=== PATIENT | female | born 1935 | race Caucasian/White ===

== ENCOUNTER 2023-12-28 15:50 | Emergency (ER) | payer MEDICARE, SELFPAY ==
[2023-12-28] VITALS (7 sets, daily range): BP systolic 150–173; BP diastolic 73–94
--- NOTE | 2023-12-28 20:36 | ED.GENMED ---
History of Present Illness
General
Chief Complaint: Fall
Source: patient and family
Exam Limitations: none
Time Seen by Provider: 12/28/23 18:15
Nursing documentation reviewed up to this point in time: agreed with
Travel History
Have you had any contact with someone who has COVID-19?: No
Do you have any symptoms of coronavirus? Fever > 100 degrees, chills, cough, shortness of breath, sore throat, loss of taste or smell, muscle aches, or headache?: No
History of Present Illness
History of Present Illness:
88-year-old female past medical history chronic back pain hypertension hyperlipidemia presenting to the emergency department after slipping falling backward hitting her mid back denies additional injuries denies hitting her head denies loss
conscious not on blood thinners. No extremity discomfort no numbness or weakness
Past History
Past History
ED Past Medical History: Arrthythmia (Torsades, high grade AV block), GERD, HTN, Hypercholesterolemia and [place]
ED Past Surgical History: Appendectomy, Cardiac (Pacemaker), Orthopedic, Tonsilectomy and Other (Cataracts)
Social History
Tobacco: Non-smoker
Alcohol: None
Drug: None
Personal:
Living: with family
Family History
Family History: Negative Diabetes, Hypertension, Early CAD, Asthma or Cancer
Review of Systems
Review of Systems
Allergies reviewed?: Yes
All Other Systems: ROS reviewed and negative except as documented in HPI and ROS
Phy Exam
Physical Exam
Physical Exam:
GENERAL: Alert , in no apparent distress
EYE: pupils equal and reactive
NECK: Supple, no significant adenopathy.
ENT: o/p clr, mmm.
CARDIAC: Discomforts throughout the mid and lower thoracic region of the back very minimal tenderness no specific bony tenderness regular rate and rhythm .
LUNGS: Clear breath sounds bilaterally, no acute respiratory distress, no wheezes/rales/rhonchi
ABDOMEN: Soft, without focal tenderness, no r/g, no cvat
NEUROLOGICAL: Alert and oriented, no focal neuro deficits
SKIN: Warm and dry, skin intact.
MUSCULOSKELETAL: No edema, well perfused.
PSYCH: Normal and appropriate interaction.
Course
Orders/Labs/Results
Orders:
Orders
12/28/23 18:58
CT Chest W/o Iv Contrast Urgent
Comment:
Reason For Exam: fall hit back midline, crepit, rib pain mid thorac
Vital Signs
Initial and Last Documented VS:
Initial Vital Signs
Temp Pulse Resp BP Pulse Ox
97.7 F 75 18 168/90 96
12/28/23 16:15 12/28/23 16:15 12/28/23 16:15 12/28/23 16:15 12/28/23 16:15
Last Documented Vital Signs
Temp Pulse Resp BP Pulse Ox
97.7 F 84 16 173/79 95
12/28/23 16:15 12/28/23 18:49 12/28/23 18:49 12/28/23 18:49 12/28/23 18:51
MDM/Problems Addressed
MDM/Problems Addressed:
88-year-old female presenting to the emergency department today after slipping falling backward hitting her mid upper back on the ground. Ongoing discomfort since no numbness weakness no shortness of breath no chest pain denies any her head or neck
no head or neck discomfort or signs of trauma. Normal neurologic evaluation. Clear lungs. CT scan was obtained without emergent findings. Patient appears stable for discharge considering no emergent findings at site of traumatic injury. Return
precautions given. Well-appearing throughout ER stay.
*Critical Care Note
Total Time (30-74mins, 75-104mins- exclusive of procedures): Not Applicable
ED Attending Note
-
Portions of this chart may have been created with voice recognition software.� Occasional wrong word or��sound alike� substitutions may have occurred due to the inherent limitations of voice recognition software.
Discharge Plan
Departure
Patient Disposition: Home (Routine Discharge)
Date of Disposition: 12/28/23
Time of Disposition: 21:25
Patient with high blood pressure during this ER visit?: No
Condition: Good
Covid-19: Not Applicable
Discharge Problem:
Contusion of back
Instructions: Contusion (DC)
Prescriptions:
No Action
simvastatin 20 MG tablet
20 mg PO HS
folic acid 1 MG tablet
1 mg PO DAILY Qty: 0
losartan 50 MG tablet
50 mg PO DAILY Qty: 30 3RF
Rx Instructions:
This is a reduced dose
furosemide 40 MG tablet
40 mg PO DAILY
polyethylene glycol 3350 17 GRAMS powder in packet
17 grams PO DAILYPRN PRN (Reason: constipation)
metoprolol succinate 25 MG tablet extended release 24 hr
25 mg PO DAILY
cholecalciferol (vitamin D3) 1,000 UNITS tablet
1,000 units PO DAILY
pantoprazole 40 MG tablet,delayed release (DR/EC)
40 mg PO DAILY Qty: 30 0RF
acetaminophen 325 MG tablet
650 mg PO Q4HPRN PRN (Reason: mild pain)
Referrals:
John España DO [Family Provider] -
Activity Restrictions/Additional Instructions:
You came to the emergency department today after falling and hitting her back. You had a CT scan without evidence of emergent injury. Please follow-up closely with the primary care doctor as needed. Return to the emergency department for any
worsening, new or concerning symptoms.
Interventions
Interventions:
*Risk Screen - Suicide Last Done: 12/28/23 16:15
*General Assessment Last Done: 12/28/23 16:15
*Neglect/Abuse Screening Last Done: 12/28/23 16:15
ED-Musculoskeletal Assessment Last Done: 12/28/23 18:52
ED- Neurological Assessment Last Done: 12/28/23 18:51
ED-Skin Assessment Last Done: 12/28/23 18:51
Discharge Date and Time
Print Language: VIETNAMESE
== END 2023-12-28 21:38 | disposition home or self-care (01) ==
LOC: EMR 15:50
PROVIDERS: EMERGENCY PHYSICIAN Student in an Organized Health Care Education/Training Program; FAMILY PHYSICIAN Family Medicine
DX: S20.229A Contusion of unspecified back wall of thorax, initial encounter (principal); W01.0XXA Fall on same level from slipping, tripping and stumbling without subsequent striking against object, initial encounter; G89.29 Other chronic pain; I10 Essential (primary) hypertension; E78.00 Pure hypercholesterolemia, unspecified; K21.9 Gastro-esophageal reflux disease without esophagitis; I44.39 Other atrioventricular block; Z96.651 Presence of right artificial knee joint; Z95.0 Presence of cardiac pacemaker
CPT/HCPCS: 99283; 71250

== ENCOUNTER 2024-09-13 09:10 | Emergency (ER) | payer MEDICARE, SELFPAY ==
[2024-09-13 09:20] VITALS: BP 148/72
[2024-09-13 09:44] LABS: % Basophils 0.8 % (0-2); % Eosinophils 1.7 % (0-6); % Immature Granulocytes 0.4 % (0-0.5); % Monocytes 11.1 % (1.7-9.3); Absolute Eosinophils 0.1 10^3/uL (0-0.7); Absolute Lymphocytes 0.9 10^3/uL (1.2-3.4); Absolute Monocytes 0.6 10^3/uL (0.1-0.6); Absolute Neutrophils 3.7 10^3/uL (1.4-6.5); Hematocrit 40.4 % (37.0-47.0); Hemoglobin 13.5 g/dL (12.0-16.0); Mean Corp Hgb Conc. 33.4 g/dL (33.0-37.0); Mean Corpuscular Hgb 30.5 pg (27.0-31.0); Mean Corpuscular Volume 91.2 fL (81.0-99.0); Mean Platelet Volume 9.8 fL (7.4-10.4); Nucleated Red Blood Cells % 0 %; Platelet Count 184 10^3/uL (130-400); Red Blood Cell Count 4.43 10^6/uL (4.20-5.40); Red Cell Dist. Width 13.3 % (11.5-14.5); White Blood Cell Count 5.3 10^3/uL (4.8-10.8)
[2024-09-13 09:57] LABS: ALT (SGPT) 21 U/L (0-35); AST (SGOT) 33 U/L (14-36); Albumin 4.6 g/dl (3.5-5.0); Alkaline Phosphatase 70 U/L (38-126); Blood Urea Nitrogen 26 mg/dl (7-17); Calcium 9.7 mg/dl (8.4-10.2); Carbon Dioxide 26 mmol/L (22-30); Chloride 101 mmol/L (98-107); Glucose 143 mg/dl (70-99); Potassium 4.5 mmol/L (3.5-5.1); Sodium 137 mmol/L (135-145); Total Bilirubin 1.2 mg/dl (0.2-1.3); Total Protein 6.8 g/dl (6.3-8.2); eGFR 48.03
--- NOTE | 2024-09-13 12:26 | ED.GENMED ---
History of Present Illness
General
Chief Complaint: Hallucinations
Source: patient
Exam Limitations: none
Time Seen by Provider: 09/13/24 12:11
History of Present Illness
History of Present Illness:
89-year-old female lives in assisted living at [facility] presents for new onset hallucinations. She is seeing and hearing people talk to her that are not there. She is also seeing things crawl up the wall and spots on the wall. Geovani has
been for about a week. Saw urgent care 2 days ago and was thought to potentially have a UTI however the culture came back negative. She was on an antibiotic for 2 days symptoms did not improve and she stopped the antibiotic. She denies headache.
She does note a slight cough. She denies chest pain or shortness of breath. No abdominal pain. No other complaints at this time
Past History
Past History
ED Past Medical History: Arrthythmia (Torsades, high grade AV block), GERD, HTN, Hypercholesterolemia and [place]
ED Past Surgical History: Appendectomy, Cardiac (Pacemaker), Orthopedic, Tonsilectomy and Other (Cataracts)
Social History
Tobacco: Non-smoker
Alcohol: None
Drug: None
Personal:
Living: with family
Family History
Family History: Negative Diabetes, Hypertension, Early CAD, Asthma or Cancer
Phy Exam
Physical Exam
Physical Exam:
General: Well-appearing female nontoxic no acute respiratory distress
HEENT: Normocephalic atraumatic neck is supple pupils equal round reactive to light heart: Regular rate and rhythm no murmurs
Lungs: Clear no wheeze or rales abdomen is soft nontender nondistended
Neurologic exam: Alert and oriented x 3 no facial asymmetry no drift good strength to the upper and lower extremities conversing appropriately
Psychiatric exam: Admits to having visual and auditory hallucinations. Otherwise mood and affect are appropriate
Course
Orders/Labs/Results
Orders:
Orders
09/13/24 09:33
Complete Blood Count/With Diff Urgent
Comprehensive Metabolic Panel Urgent
09/13/24 12:25
CT Head W/o Iv Contrast Urgent
Comment:
Reason For Exam: confusion
CR Chest - 2 Views Urgent
Comment:
Reason For Exam: cough
09/13/24 12:50
COVID-19 Antigen Urgent
Source: Nasal Swab
Urinalysis Reflex To Culture Urgent
Date Specimen was Collected: 09/13/24
Time Specimen was Collected: 12:48
Urine Microscopic Reflex Cult Urgent
Influenza A+B Rapid Molecular Urgent
RAUL Source: Nasal Swab
Specimen Description:
Urine Culture Urgent
RAUL Source: U
Specimen Description:
Obtained by: Random
Date Specimen was Collected: 09/13/24
Time Specimen was Collected: 12:48
09/13/24 14:34
Acetaminophen [Tylenol] 650 mg PO NOW STA
Abnormal Lab Results
09/13/24 09/13/24
09:33 12:50
Absolute Lymphs (auto) 0.9 L 10^3/uL
(1.2-3.4)
Lymphocytes % 16.0 L %
(20.5-51.1)
Monocytes % 11.1 H %
(1.7-9.3)
BUN 26 H mg/dl
(7-17)
Creatinine 1.1 H mg/dL
(0.6-1.0)
Glucose 143 H mg/dl
(70-99)
Leukocyte Esterase Rfl 1+ A
(Negative)
Urine Bacteria (Reflex) Few A
(Negative)
09/13/24 09:33
09/13/24 09:33
Vital Signs
Initial and Last Documented VS:
Initial Vital Signs
Temp Pulse Resp BP Pulse Ox
98.3 F 86 16 148/72 99
09/13/24 09:20 09/13/24 09:20 09/13/24 09:20 09/13/24 09:20 09/13/24 09:20
Last Documented Vital Signs
Temp Pulse Resp BP Pulse Ox
98.3 F 86 16 148/72 99
09/13/24 09:20 09/13/24 09:20 09/13/24 09:20 09/13/24 09:20 09/13/24 09:20
MDM/Problems Addressed
Differential Diagnosis Includes:
New onset hallucinations. No new medicine. Question infectious source. Will check urine COVID flu chest x-ray. Also order CT of head. Check labs. Labs reviewed no significant electrolyte abnormality. There is a baseline creatinine of 1.1
*Critical Care Note
Total Time (30-74mins, 75-104mins- exclusive of procedures): Not Applicable
Update Note
Update Note:
Patient reevaluated still nontoxic in appearance vital signs are stable labs reviewed without significant finding normal electrolytes. Patient did test positive for influenza. Chest x-ray and head CT's were negative. At this point no indication
for admission to hospital but would recommend supportive care at home for the flu including hydration and fever control. Consider Tamiflu would not prescribe it in the setting of hallucinations and overall otherwise stable nontoxic patient
ED Attending Note
-
Portions of this chart may have been created with voice recognition software.� Occasional wrong word or��sound alike� substitutions may have occurred due to the inherent limitations of voice recognition software.
Discharge Plan
Departure
Patient Disposition: Home (Routine Discharge)
Date of Disposition: 09/13/24
Time of Disposition: 14:36
Patient with high blood pressure during this ER visit?: No
Discharge Problem:
Hallucination, Influenza A
Prescriptions:
No Action
simvastatin 20 MG tablet
20 mg PO HS
folic acid 1 MG tablet
1 mg PO DAILY Qty: 0
losartan 50 MG tablet
50 mg PO DAILY Qty: 30 3RF
Rx Instructions:
This is a reduced dose
furosemide 40 MG tablet
40 mg PO DAILY
polyethylene glycol 3350 17 GRAMS powder in packet
17 grams PO DAILYPRN PRN (Reason: constipation)
metoprolol succinate 25 MG tablet extended release 24 hr
25 mg PO DAILY
cholecalciferol (vitamin D3) 1,000 UNITS tablet
1,000 units PO DAILY
pantoprazole 40 MG tablet,delayed release (DR/EC)
40 mg PO DAILY Qty: 30 0RF
acetaminophen 325 MG tablet
650 mg PO Q4HPRN PRN (Reason: mild pain)
Referrals:
Chaz Catalan, DO [Family Provider] -
Activity Restrictions/Additional Instructions:
Drink plenty fluids. Use Tylenol or ibuprofen for fever or headache. You may use Mucinex for your cough. As discussed, you have a viral illness, influenza. This should go away on its own. Return if needed otherwise
Interventions
Interventions:
*Risk Screen - Suicide Last Done: 09/13/24 13:22
*General Assessment Last Done: 09/13/24 13:22
*Neglect/Abuse Screening Last Done: 09/13/24 13:22
ED- Fall Risk Assessment Last Done: 09/13/24 13:22
*ED COVID-19 Vaccine History Last Done: 09/13/24 13:22
ED-Suicide Risk Assessment Last Done: 09/13/24 13:24
ED- Neurological Assessment Last Done: 09/13/24 13:22
ED-Psychological Assessment Last Done: 09/13/24 13:22
Discharge Date and Time
Print Language: FINNISH
[2024-09-13 13:28] LABS: COVID-19 Antigen Negative (Negative)
[2024-09-13 13:37] LABS: Urine Albumin Trace (Neg - Trace); Urine Bilirubin Negative (Negative); Urine Character Clear (Clear); Urine Color Yellow; Urine Glucose Negative (Negative); Urine Ketone Negative (Negative); Urine Leukocyte 1+ (Negative); Urine Nitrite Negative (Negative); Urine Occult Blood Negative (Negative); Urine Specific Gravity 1.015 (<1.030); Urine Urobilinogen Negative (Neg - 1+)
[2024-09-13 14:04] LABS: Urine Red Blood Cell 0-2 /HPF (0-2); Urine Squamous Cell 0-2 /LPF (Few)
[2024-09-13 14:05] LABS: Urine Bacteria Few (Negative)
[2024-09-13 14:36] VITALS: BP 153/78
[2024-09-13] MEDS: TYLENOL 650 MG PO (14:45)
== END 2024-09-13 14:40 | disposition home or self-care (01) ==
LOC: EMR 09:10
PROVIDERS: Emergency Medicine; Physician Assistant; EMERGENCY PHYSICIAN Emergency Medicine; FAMILY PHYSICIAN Family Medicine
DX: J10.1 Influenza due to other identified influenza virus with other respiratory manifestations (principal); R44.3 Hallucinations, unspecified; Z11.52 Encounter for screening for COVID-19
CPT/HCPCS: 99285; 70450; 71046; 80053; 81003; 81015; 85025; 87086; 87502; 87811

== ENCOUNTER 2024-09-27 17:23 | Emergency (ER) | payer MEDICARE, SELFPAY ==
[2024-09-27 17:30] VITALS: BP 107/90
--- NOTE | 2024-09-27 17:35 | ED.GENMED ---
ED Provider Triage
<Lamont Polanco PA-C - Last Filed: 09/27/24 17:36>
-
Patient seen by provider in Triage?: Seen in Triage
89-year-old female [facility] for weakness change in mental status and persistent cough. She had been diagnosed with a upper respiratory infection recently. She is not getting better. No recent fever. There was some report for
confusion from the facility however she seems to be answering questions appropriately at triage vital signs are stable. Will check labs COVID flu test x-ray and urinalysis
Seen by healthcare provider at triage but warrants further assessment
History of Present Illness
<Lamont Polanco PA-C - Last Filed: 09/27/24 17:36>
General
Chief Complaint: Change in Mental Status
Time Seen by Provider: 09/27/24 21:49
<Pedro Guzmán MD - Last Filed: 09/28/24 17:08>
General
Source: patient
Exam Limitations: none
Nursing documentation reviewed up to this point in time: agreed with
History of Present Illness
History of Present Illness:
Patient presents to ED from assisted living, secondary to persistent cough with concern for pneumonia, as well as visual and auditory hallucination, which started approximately 2 weeks ago. Patient was evaluated in ED for same complaint 2 weeks
ago, during which time patient tested positive for influenza. Since then, cough has persisted, but has become less productive. Denies loss of appetite. Denies fever or chills. Denies nausea, vomiting, or diarrhea. Per son at bedside, patient's
overall symptoms have improved. Denies previous history of visual or auditory hallucination, prior to 2 weeks ago. Denies recent change in medications or diet. Per patient, at times, dark spot appears to be rolling along the wall and she feels as
though someone is behind her. Today, while waiting the waiting room, patient expressed to her son that wall appears to be opening up.
Past History
<Lamont Polanco PA-C - Last Filed: 09/27/24 17:36>
Past History
ED Past Medical History: Arrthythmia (Torsades, high grade AV block), GERD, HTN, Hypercholesterolemia and [place]
ED Past Surgical History: Appendectomy, Cardiac (Pacemaker), Orthopedic, Tonsilectomy and Other (Cataracts)
Social History
Tobacco: Non-smoker
Alcohol: None
Drug: None
Personal:
Living: with family
Family History
Family History: Negative Diabetes, Hypertension, Early CAD, Asthma or Cancer
Review of Systems
<Pedro Guzmán MD - Last Filed: 09/28/24 17:08>
Review of Systems
Allergies reviewed?: Yes
All Other Systems: ROS reviewed and negative except as documented in HPI and ROS
Constitutional: Reports no symptoms
EENT: Reports no symptoms
Respiratory: Reports cough
Cardiac: Reports no symptoms
ABD/GI: Reports no symptoms
Musculoskeletal: Reports no symptoms
Skin: Reports no symptoms
Neurological: Reports no symptoms
Phy Exam
<Pedro Guzmán MD - Last Filed: 09/28/24 17:08>
Physical Exam
Physical Exam:
Physical Exam
General: no apparent distress, not acutely ill. afebrile
Head: nc/at. eomi
Neck: supple. no meningeal signs.
Heart: s1/s2 regular rate and rhythm, no murmur. equal radial pulses.
Lungs: no acute respiratory distress. clear bilaterally
Abdomen: normal bowel sounds. not tender.
Neuro: alert and oriented x 3. no focal neurological deficits
Skin: no rash
Psychiatric: well kept. interactive and cooperative
Extremities: no edema. no calf tenderness.
Course
<Lamont Polanco PA-C - Last Filed: 09/27/24 17:36>
Orders/Labs/Results
Orders:
Orders
09/27/24 17:34
CR Chest - 2 Views Urgent
Comment:
Reason For Exam: cough
09/27/24 17:50
COVID-19 Antigen Urgent
Source: Nasal Swab
Complete Blood Count/With Diff Urgent
Comprehensive Metabolic Panel Urgent
Influenza A+B Rapid Molecular Urgent
RAUL Source: Nasal Swab
Specimen Description:
09/27/24 22:53
Crisis Consult Urgent
Reason for Consult: hallucination
09/27/24 23:51
Urinalysis Reflex To Culture Urgent
Date Specimen was Collected: 09/27/24
Time Specimen was Collected: 22:08
Urine Microscopic Reflex Cult Urgent
Urine Culture Urgent
RAUL Source: U
Specimen Description:
Date Specimen was Collected: 09/27/24
Time Specimen was Collected: 22:08
09/28/24 00:25
Benzonatate [Tessalon Perles] 100 mg PO NOW STA
Abnormal Lab Results
09/27/24 09/27/24
17:50 23:51
Abs Immat Gran (auto) 0.1 H 10^3/uL
(0-0.05)
Absolute Monos (auto) 1.3 H 10^3/uL
(0.1-0.6)
Immature Gran % 1.3 H %
(0-0.5)
Monocytes % 15.4 H %
(1.7-9.3)
Chloride 91 L mmol/L
(98-107)
Carbon Dioxide 34 H mmol/L
(22-30)
BUN 26 H mg/dl
(7-17)
Creatinine 1.4 H mg/dL
(0.6-1.0)
Glucose 114 H mg/dl
(70-99)
Leukocyte Esterase Rfl 2+ A
(Negative)
Urine RBC 3-6 A /HPF
(0-2)
Urine WBC (Reflex) >100 A /HPF
(0-5)
Urine Bacteria (Reflex) Many A
(Negative)
09/27/24 17:50
09/27/24 17:50
Vital Signs
Initial and Last Documented VS:
Initial Vital Signs
Temp Pulse Resp BP Pulse Ox
97.6 F 76 16 107/90 100
09/27/24 17:30 09/27/24 17:30 09/27/24 17:30 09/27/24 17:30 09/27/24 17:30
Last Documented Vital Signs
Temp Pulse Resp BP Pulse Ox
97.6 F 74 13 94/53 95
09/27/24 17:30 09/28/24 00:00 09/27/24 23:15 09/28/24 00:00 09/28/24 00:00
<Pedro Guzmán MD - Last Filed: 09/28/24 17:08>
Orders/Labs/Results
Orders:
Orders
09/27/24 17:34
CR Chest - 2 Views Urgent
Comment:
Reason For Exam: cough
09/27/24 17:50
COVID-19 Antigen Urgent
Source: Nasal Swab
Complete Blood Count/With Diff Urgent
Comprehensive Metabolic Panel Urgent
Influenza A+B Rapid Molecular Urgent
RAUL Source: Nasal Swab
Specimen Description:
09/27/24 22:53
Crisis Consult Urgent
Reason for Consult: hallucination
09/27/24 23:51
Urinalysis Reflex To Culture Urgent
Date Specimen was Collected: 09/27/24
Time Specimen was Collected: 22:08
Urine Microscopic Reflex Cult Urgent
Urine Culture Urgent
RAUL Source: U
Specimen Description:
Date Specimen was Collected: 09/27/24
Time Specimen was Collected: 22:08
09/28/24 00:25
Benzonatate [Tessalon Perles] 100 mg PO NOW STA
Abnormal Lab Results
09/27/24 09/27/24
17:50 23:51
Abs Immat Gran (auto) 0.1 H 10^3/uL
(0-0.05)
Absolute Monos (auto) 1.3 H 10^3/uL
(0.1-0.6)
Immature Gran % 1.3 H %
(0-0.5)
Monocytes % 15.4 H %
(1.7-9.3)
Chloride 91 L mmol/L
(98-107)
Carbon Dioxide 34 H mmol/L
(22-30)
BUN 26 H mg/dl
(7-17)
Creatinine 1.4 H mg/dL
(0.6-1.0)
Glucose 114 H mg/dl
(70-99)
Leukocyte Esterase Rfl 2+ A
(Negative)
Urine RBC 3-6 A /HPF
(0-2)
Urine WBC (Reflex) >100 A /HPF
(0-5)
Urine Bacteria (Reflex) Many A
(Negative)
09/27/24 17:50
09/27/24 17:50
Vital Signs
Initial and Last Documented VS:
Initial Vital Signs
Temp Pulse Resp BP Pulse Ox
97.6 F 76 16 107/90 100
09/27/24 17:30 09/27/24 17:30 09/27/24 17:30 09/27/24 17:30 09/27/24 17:30
Last Documented Vital Signs
Temp Pulse Resp BP Pulse Ox
97.6 F 74 13 94/53 95
09/27/24 17:30 09/28/24 00:00 09/27/24 23:15 09/28/24 00:00 09/28/24 00:00
<Brandt Rodriguez MD - Last Filed: 09/28/24 14:46>
Orders/Labs/Results
Orders:
Orders
09/27/24 17:34
CR Chest - 2 Views Urgent
Comment:
Reason For Exam: cough
09/27/24 17:50
COVID-19 Antigen Urgent
Source: Nasal Swab
Complete Blood Count/With Diff Urgent
Comprehensive Metabolic Panel Urgent
Influenza A+B Rapid Molecular Urgent
RAUL Source: Nasal Swab
Specimen Description:
09/27/24 22:53
Crisis Consult Urgent
Reason for Consult: hallucination
09/27/24 23:51
Urinalysis Reflex To Culture Urgent
Date Specimen was Collected: 09/27/24
Time Specimen was Collected: 22:08
Urine Microscopic Reflex Cult Urgent
Urine Culture Urgent
RAUL Source: U
Specimen Description:
Date Specimen was Collected: 09/27/24
Time Specimen was Collected: 22:08
09/28/24 00:25
Benzonatate [Tessalon Perles] 100 mg PO NOW STA
Abnormal Lab Results
09/27/24 09/27/24
17:50 23:51
Abs Immat Gran (auto) 0.1 H 10^3/uL
(0-0.05)
Absolute Monos (auto) 1.3 H 10^3/uL
(0.1-0.6)
Immature Gran % 1.3 H %
(0-0.5)
Monocytes % 15.4 H %
(1.7-9.3)
Chloride 91 L mmol/L
(98-107)
Carbon Dioxide 34 H mmol/L
(22-30)
BUN 26 H mg/dl
(7-17)
Creatinine 1.4 H mg/dL
(0.6-1.0)
Glucose 114 H mg/dl
(70-99)
Leukocyte Esterase Rfl 2+ A
(Negative)
Urine RBC 3-6 A /HPF
(0-2)
Urine WBC (Reflex) >100 A /HPF
(0-5)
Urine Bacteria (Reflex) Many A
(Negative)
09/27/24 17:50
09/27/24 17:50
Vital Signs
Initial and Last Documented VS:
Initial Vital Signs
Temp Pulse Resp BP Pulse Ox
97.6 F 76 16 107/90 100
09/27/24 17:30 09/27/24 17:30 09/27/24 17:30 09/27/24 17:30 09/27/24 17:30
Last Documented Vital Signs
Temp Pulse Resp BP Pulse Ox
97.6 F 74 13 94/53 95
09/27/24 17:30 09/28/24 00:00 09/27/24 23:15 09/28/24 00:00 09/28/24 00:00
<Pedro Guzmán MD - Last Filed: 09/28/24 17:08>
MDM/Problems Addressed
MDM/Problems Addressed:
Patient with an unremarkable workup in ED, including blood work and chest x-ray. In light of patient's persistent hallucination, offered telepsychiatry evaluation. However, at this time, patient would like to be discharged back to retirement, at
which point she will follow-up with her primary care physician.
<Brandt Rodriguez MD - Last Filed: 09/28/24 14:46>
*Critical Care Note
Total Time (30-74mins, 75-104mins- exclusive of procedures): Not Applicable
<Brandt Rodriguez MD - Last Filed: 09/28/24 14:46>
Update Note
Update Note:
The patient's daughter called the emergency room this morning. She asked that I send a prescription for benzonatate to [facility] in [place] (apparently patient was given a printed copy on discharge). She also requested I send albuterol for a trial to
help treat her mother's cough. Prescriptions transmitted.
ED Attending Note
<Lamont Polanco PA-C - Last Filed: 09/27/24 17:36>
-
Portions of this chart may have been created with voice recognition software.� Occasional wrong word or��sound alike� substitutions may have occurred due to the inherent limitations of voice recognition software.
Discharge Plan
Departure
Patient Disposition: Home (Routine Discharge)
Date of Disposition: 09/28/24
Time of Disposition: 00:26
Patient with high blood pressure during this ER visit?: No
Condition: Good
Discharge Problem:
Cough, Hallucination
Instructions: Cough in adults - ED discharge instructions
Prescriptions:
New
benzonatate 100 mg capsule
100 mg PO TID PRN (Reason: Cough) Qty: 12 0RF
albuterol sulfate 90 mcg/actuation HFA aerosol inhaler
2 puff inhalation Q6H PRN (Reason: shortness of breath or wheezing) Qty: 6.7 0RF
No Action
simvastatin 20 MG tablet
20 mg PO HS
folic acid 1 MG tablet
1 mg PO DAILY Qty: 0
losartan 50 MG tablet
50 mg PO DAILY Qty: 30 3RF
Rx Instructions:
This is a reduced dose
furosemide 40 MG tablet
40 mg PO DAILY
polyethylene glycol 3350 17 GRAMS powder in packet
17 grams PO DAILYPRN PRN (Reason: constipation)
metoprolol succinate 25 MG tablet extended release 24 hr
25 mg PO DAILY
cholecalciferol (vitamin D3) 1,000 UNITS tablet
1,000 units PO DAILY
pantoprazole 40 MG tablet,delayed release (/EC)
40 mg PO DAILY Qty: 30 0RF
acetaminophen 325 MG tablet
650 mg PO Q4HPRN PRN (Reason: mild pain)
Referrals:
Chaz Catalan, DO [Family Provider] -
Activity Restrictions/Additional Instructions:
As discussed, please follow-up with your primary care physician for further evaluation and treatment.
Interventions
Interventions:
*Risk Screen - Suicide Last Done: 09/27/24 17:30
*General Assessment Last Done: 09/27/24 21:08
*Neglect/Abuse Screening Last Done: 09/27/24 17:30
ED- Fall Risk Assessment Last Done: 09/28/24 00:27
*ED COVID-19 Vaccine History Last Done: 09/27/24 21:08
*Nursing Disposition Last Done: 09/28/24 00:27
ED- Pulmonary Assessment Last Done: 09/27/24 21:05
ED-Psychological Assessment Last Done: 09/27/24 21:05
ED- Neurological Assessment Last Done: 09/27/24 21:05
ED Swallowing Screen Last Done: 09/27/24 21:07
Discharge Date and Time
Discharge Date/Time: 09/28/24 00:42
Print Language: MOROCCAN
[2024-09-27 18:02] LABS: % Eosinophils 1.7 % (0-6); % Immature Granulocytes 1.3 % (0-0.5); % Lymphocytes 20.6 % (20.5-51.1); % Monocytes 15.4 % (1.7-9.3); Absolute Basophils 0.1 10^3/uL (0-0.2); Absolute Eosinophils 0.1 10^3/uL (0-0.7); Absolute Immature Granulocytes 0.1 10^3/uL (0-0.05); Absolute Lymphocytes 1.7 10^3/uL (1.2-3.4); Absolute Monocytes 1.3 10^3/uL (0.1-0.6); Absolute Neutrophils 4.9 10^3/uL (1.4-6.5); Hemoglobin 14.8 g/dL (12.0-16.0); Mean Corp Hgb Conc. 34.4 g/dL (33.0-37.0); Mean Corpuscular Hgb 30.3 pg (27.0-31.0); Mean Corpuscular Volume 87.9 fL (81.0-99.0); Mean Platelet Volume 9.3 fL (7.4-10.4); Nucleated Red Blood Cells % 0 %; Platelet Count 299 10^3/uL (130-400); Red Blood Cell Count 4.89 10^6/uL (4.20-5.40); White Blood Cell Count 8.2 10^3/uL (4.8-10.8)
[2024-09-27 18:15] LABS: ALT (SGPT) 18 U/L (0-35); AST (SGOT) 30 U/L (14-36); Albumin 4.5 g/dl (3.5-5.0); Alkaline Phosphatase 84 U/L (38-126); Blood Urea Nitrogen 26 mg/dl (7-17); Calcium 9.7 mg/dl (8.4-10.2); Carbon Dioxide 34 mmol/L (22-30); Chloride 91 mmol/L (98-107); Glucose 114 mg/dl (70-99); Potassium 3.8 mmol/L (3.5-5.1); Sodium 135 mmol/L (135-145); Total Protein 7.4 g/dl (6.3-8.2); eGFR 35.96
[2024-09-27 18:23] LABS: COVID-19 Antigen Negative (Negative)
[2024-09-27 20:48] VITALS: BP 149/61
[2024-09-27 21:00] VITALS: BP 132/57
[2024-09-27 21:07] VITALS: BMI 25.7
[2024-09-27 22:00] VITALS: BP 148/66
[2024-09-27 23:00] VITALS: BP 127/55
[2024-09-27 23:57] LABS: Urine Albumin Negative (Neg - Trace); Urine Bilirubin Negative (Negative); Urine Character Slightly Cloudy (Clear); Urine Color Yellow; Urine Glucose Negative (Negative); Urine Ketone Negative (Negative); Urine Leukocyte 2+ (Negative); Urine Nitrite Negative (Negative); Urine Occult Blood Negative (Negative); Urine Urobilinogen Negative (Neg - 1+)
[2024-09-28] VITALS: BP 94/53
[2024-09-28] MEDS: TESSALON PERLES 100 MG PO (00:32)
[2024-09-28 01:12] LABS: Urine Mucus Moderate; Urine Squamous Cell >30 /LPF (Few); Urine Urothelial Cell >30 /LPF (FEW)
[2024-09-28 01:13] LABS: Urine Bacteria Many (Negative); Urine White Cell >100 /HPF (0-5)
== END 2024-09-28 00:42 | disposition home or self-care (01) ==
LOC: EMR 17:23
PROVIDERS: Physician Assistant; EMERGENCY PHYSICIAN Emergency Medicine; FAMILY PHYSICIAN Family Medicine
DX: R44.3 Hallucinations, unspecified (principal); R05.9 Cough, unspecified; I44.30 Unspecified atrioventricular block; K21.9 Gastro-esophageal reflux disease without esophagitis; I10 Essential (primary) hypertension; E78.00 Pure hypercholesterolemia, unspecified; I25.2 Old myocardial infarction; Z82.49 Family history of ischemic heart disease and other diseases of the circulatory system; Z90.49 Acquired absence of other specified parts of digestive tract; Z95.0 Presence of cardiac pacemaker
CPT/HCPCS: 99283; 71046; 80053; 81003; 81015; 85025; 87086; 87502; 87811

== ENCOUNTER 2024-10-12 23:07 | Inpatient (IN) | payer MEDICARE, SELFPAY ==
[2024-10-12 17:23] VITALS: BP 141/63
[2024-10-12 17:54] LABS: % Basophils 1.2 % (0-2); % Eosinophils 1.3 % (0-6); % Immature Granulocytes 1.4 % (0-0.5); % Lymphocytes 12.2 % (20.5-51.1); % Monocytes 14.3 % (1.7-9.3); % Neutrophils 69.6 % (42.2-75.2); Absolute Basophils 0.1 10^3/uL (0-0.2); Absolute Eosinophils 0.1 10^3/uL (0-0.7); Absolute Immature Granulocytes 0.1 10^3/uL (0-0.05); Absolute Lymphocytes 1.2 10^3/uL (1.2-3.4); Absolute Monocytes 1.4 10^3/uL (0.1-0.6); Absolute Neutrophils 6.6 10^3/uL (1.4-6.5); Hematocrit 40.2 % (37.0-47.0); Hemoglobin 14.3 g/dL (12.0-16.0); Mean Corp Hgb Conc. 35.6 g/dL (33.0-37.0); Mean Corpuscular Hgb 29.8 pg (27.0-31.0); Mean Corpuscular Volume 83.8 fL (81.0-99.0); Mean Platelet Volume 8.9 fL (7.4-10.4); Nucleated Red Blood Cells % 0 %; Platelet Count 369 10^3/uL (130-400); Red Cell Dist. Width 14.1 % (11.5-14.5); White Blood Cell Count 9.5 10^3/uL (4.8-10.8)
--- NOTE | 2024-10-12 18:36 | PHANOTE ---
MED REC NOTE- PATIENT INDEPENDENT LIVING AT [facility], OF 10/12/24 PATIENT PATIENT FACILITY TOOK OVER PATIENT MEDICATIONS. SPOKE TO [facility] AND WILL UPDATE MED LIST BASE ON THER LIST. PATIENT DID STATE SHE HAS OTC IN HER ROOM,
LIKE TYLENOL AND COUGH PRODUCTS
--- NOTE | 2024-10-12 18:41 | ED.GENMED ---
History of Present Illness
General
Chief Complaint: Weakness
Source: patient
Exam Limitations: none
Time Seen by Provider: 10/12/24 18:28
History of Present Illness
History of Present Illness:
89-year-old female presents from [facility] independent living with worsening pain to the bilateral lower extremities over the past 2 weeks to 3 weeks. No associated chest pain or breath. She denies any obvious swelling in the legs. No
associated back pain. No numbness. No injuries. She had been evaluated by orthopedics last week and no acute bony abnormality was found. Recently she had influenza and has been sedentary. No other complaints at this time
Past History
Past History
ED Past Medical History: Arrthythmia (Torsades, high grade AV block), GERD, HTN, Hypercholesterolemia and NE
ED Past Surgical History: Appendectomy, Cardiac (Pacemaker), Orthopedic, Tonsilectomy and Other (Cataracts)
Social History
Tobacco: Non-smoker
Alcohol: None
Drug: None
Personal:
Living: with family
Family History
Family History: Negative Diabetes, Hypertension, Early CAD, Asthma or Cancer
Phy Exam
Physical Exam
Physical Exam:
General: Well-appearing female no acute respiratory distress
HEENT: NC/AT mucosa dry
Heart: RRR, no murmurs
Lungs: CTA bilaterally
Abd: soft, nontender
Ext: no cyanosis or edema bilateral lower legs tender to the touch without deformities
Vascular: 2+ dorsalis pedis pulse bilateral feet
Neurologic: Good sensation bilateral leg
Course
Orders/Labs/Results
Orders:
Orders
10/12/24 17:43
Complete Blood Count/With Diff Urgent
10/12/24 18:40
Venous Doppler Lwr Ext Bilat [US Periph Venous LOWER Ext Juan] Urgent
Comment:
Reason For Exam: pain in lower legs
10/12/24 18:41
Ibuprofen [Motrin] 600 mg PO NOW STA
10/12/24 19:07
Ibuprofen [Motrin] 600 mg .ROUTE .STK-MED ONE
10/12/24 20:04
Dexamethasone Sod Phosphate [Decadron] 10 mg IV NOW STA
10/12/24 20:08
Comprehensive Metabolic Panel Urgent
10/12/24 21:35
Bladder Scan- Treatment ONCE
0.9% Sodium Chloride 1000 ml [Nss] 1,000 ml IV BOLUS
Abnormal Lab Results
10/12/24 10/12/24
17:43 20:08
Abs Immat Gran (auto) 0.1 H 10^3/uL
(0-0.05)
Absolute Neuts (auto) 6.6 H 10^3/uL
(1.4-6.5)
Absolute Monos (auto) 1.4 H 10^3/uL
(0.1-0.6)
Immature Gran % 1.4 H %
(0-0.5)
Lymphocytes % 12.2 L %
(20.5-51.1)
Monocytes % 14.3 H %
(1.7-9.3)
Sodium 127 L mmol/L
(135-145)
Chloride 85 L mmol/L
(98-107)
Carbon Dioxide 17 L mmol/L
(22-30)
BUN 81 H mg/dl
(7-17)
Creatinine 3.1 H mg/dL
(0.6-1.0)
Glucose 112 H mg/dl
(70-99)
AST 57 H U/L
(14-36)
ALT 68 H U/L
(0-35)
Total Protein 6.2 L g/dl
(6.3-8.2)
10/12/24 17:43
10/12/24 20:08
Vital Signs
Initial and Last Documented VS:
Initial Vital Signs
Temp Pulse Resp BP Pulse Ox
97.4 F 88 18 141/63 99
10/12/24 17:23 10/12/24 17:23 10/12/24 17:23 10/12/24 17:23 10/12/24 17:23
Last Documented Vital Signs
Temp Pulse Resp BP Pulse Ox
97.4 F 88 18 141/63 99
10/12/24 17:23 10/12/24 17:23 10/12/24 17:23 10/12/24 17:23 10/12/24 17:23
MDM/Problems Addressed
Differential Diagnosis Includes:
Bilateral leg pain. Consider myalgias versus strain versus DVT. No concern for infection. Pain does not radiate from the back nor does she have back pain. Do not suspect radiculopathy. She has great pulses to the feet do not think pain is
ischemic in nature. The legs are warm to the touch
Ultrasound pending to evaluate for DVT will also check for electrolyte abnormality. Motrin ordered for pain.
*Critical Care Note
Total Time (30-74mins, 75-104mins- exclusive of procedures): Not Applicable
Update Note
Update Note:
Patient reexamined. Venous ultrasound negative. Chemistry demonstrates hyponatremia with a sodium 127. She has acute kidney injury with a creatinine of 3.1 that is up from 1.415 days ago. Suspect prerenal given the lack of intake. Bedside
bladder scan shows minimal urine in the bladder. Normal saline ordered. Discussed with patient and family. Will mid to hospital
ED Attending Note
-
Portions of this chart may have been created with voice recognition software.� Occasional wrong word or��sound alike� substitutions may have occurred due to the inherent limitations of voice recognition software.
Discharge Plan
Departure
Patient Disposition: Admit
Date of Disposition: 10/12/24
Time of Disposition: 21:55
Presentation/result/management discussed w/ accepting MD/DO: Hospitalist
Discharge Problem:
Acute dehydration
Prescriptions:
No Action
simvastatin 20 MG tablet
20 mg PO HS
losartan 50 MG tablet
50 mg PO DAILY Qty: 30 3RF
furosemide 40 MG tablet
40 mg PO DAILY
polyethylene glycol 3350 17 GRAMS powder in packet
17 grams PO DAILYPRN PRN (Reason: constipation)
metoprolol succinate 25 MG tablet extended release 24 hr
25 mg PO DAILY
cholecalciferol (vitamin D3) 1,000 UNITS tablet
1,000 units PO DAILY
acetaminophen 325 mg Tablet
325 mg PO DAILYPRN PRN (Reason: mild pain)
guaifenesin [Mucinex] 600 mg Tablet Extended Release 12hr
600 mg PO BIDPRN PRN (Reason: congestion)
pantoprazole 40 MG tablet,delayed release (DR/EC)
40 mg PO QPM
Referrals:
Chaz Catalan, DO [Family Provider] -
Interventions
Interventions:
*Risk Screen - Suicide Last Done: 10/12/24 17:23
*General Assessment Last Done: 10/12/24 17:23
*Neglect/Abuse Screening Last Done: 10/12/24 17:23
ED- Cardiac Assessment Last Done: 10/12/24 20:11
ED- Neurological Assessment Last Done: 10/12/24 20:11
ED- Pulmonary Assessment Last Done: 10/12/24 20:11
Discharge Date and Time
Print Language: SLOVAK
[2024-10-12] MEDS: MOTRIN 600 MG PO (19:08)
[2024-10-12 20:34] LABS: ALT (SGPT) 68 U/L (0-35); AST (SGOT) 57 U/L (14-36); Albumin 3.8 g/dl (3.5-5.0); Alkaline Phosphatase 80 U/L (38-126); Blood Urea Nitrogen 81 mg/dl (7-17); Carbon Dioxide 17 mmol/L (22-30); Chloride 85 mmol/L (98-107); Glucose 112 mg/dl (70-99); Potassium 3.9 mmol/L (3.5-5.1); Sodium 127 mmol/L (135-145); Total Bilirubin 0.9 mg/dl (0.2-1.3); Total Protein 6.2 g/dl (6.3-8.2); eGFR 13.85
[2024-10-12] MEDS: DECADRON 10 MG IV (20:42)
--- NOTE | 2024-10-12 21:57 | HPS.HSE ---
Addendum entered and electronically signed by Ilan Matute DO 10/12/24 22:56:
Patient seen and examined independently. Agree with findings and plan as set forth by MARGE Pino.
Patient is an 89y F with PMH significant for HTN, CHF and GERD who presents to ED complaining of RLE pain. Patient states that symptoms began around [place] time and have gradually progressed since that time. She reports pain from the knee to
the ankle on the RLE. Pain is severe at times. Worse with standing / ambulating. Keeps her awake at night. No injury, fall, trauma, etc. No prior history of similar pain.
Patient also reports poor appetite, weight loss and general fatigue - which she states started after she received the influenza vaccine in June 2024.
Ass:
ANGELLA on CKD III
Hyponatremia - likely hypovolemic
RLE Pain
Chronic HFpEF
Benign Hypertension
GERD
Plan:
Admit for further evaluation and treatment.
IVFs for ANGELLA / hyponatremia and follow for improvement.
Hold diuretics / ARB / etc acutely.
? etiology of RLE pain - ? radicular, neuropathy, vascular.
Trial of gabapentin.
PT / OT, pain control.
Check non-invasive vascular studies - though pulses by exam are intact.
Original Note:
Family Physician
-
Family Physician: Chaz Catalan
Chief Complaint
-
right LE pain
History of Present Illness
89 year old with PMH for HTN, HLD, CHF, sick sinus syndrome, GERD presented to us with right LE pain from knee down since the . patient stated her leg pain is worse at night. she takes Tylenol at bedtime with some relief. it hurts to walk
during the day time.for past few days it progressive got worse. patient stated poor appetite since the Flu shot in June. she has lost weight due to poor appetite. denied VERDE, dizzy fever, chills, chest pain, sob. denied abdominal pain,n,v,d.
denied dysuria or hematuria.
on arrival she was noted hyponatremia and ANGELLA. patient received normal saline in ER. admitting for further management. patient received Decadron, Motrin, fluids in ER
Medical History
Past Medical History
Past Medical History: Reports Other
Additional Past Medical History:
Diverticulosis
Osteopenia
NSVT
Hyperlipidemia
Hypertension
ME
Sick sinus syndrome
Aortic valve stenosis
Rheumatoid arthritis
GERD
Lumbar radiculopathy
Coronary artery disease
Migraine headaches
Chronic kidney
Past Surgical History: Reports Other
Additional Past Surgical History:
Left total knee replacement
Tonsillectomy
Pacemaker implantation
Bilateral cataract extraction
Appendectomy
Right rotator cuff
Left foot surgery
Social History
Tobacco: Non-smoker
Alcohol: None
Drug: None
Personal: Single
Living: Assisted Living
Family History
Family History: Not pertinent
Allergies / Home Medications
Allergies reflects when Allergies were last updated in [employer].
Home Medications with original date entered in [employer]
Allergy/Medication List:
Allergies
Allergy/AdvReac Type Severity Reaction Status Date / Time
cheese Allergy Unknown Verified 09/27/24 17:30
chocolate Allergy Unknown Verified 09/27/24 17:30
peanut Allergy Unknown Verified 09/27/24 17:30
oxycodone AdvReac Vomiting Verified 09/27/24 17:30
topiramate [From Topamax] AdvReac nausea Verified 09/27/24 17:30
with
lightheadedness
Home Medications
simvastatin 20 mg tablet 20 mg PO HS 11/04/09
losartan 50 mg tablet 50 mg PO DAILY ##30 07/11/16
cholecalciferol (vitamin D3) 25 mcg (1,000 unit) tablet 1,000 units PO DAILY 10/09/17
furosemide 40 mg tablet 40 mg PO DAILY 10/09/17
metoprolol succinate 25 mg tablet,extended release 24 hr 25 mg PO DAILY 10/09/17
polyethylene glycol 3350 17 gram oral powder packet 17 grams PO DAILYPRN PRN constipation 10/09/17
acetaminophen 325 mg tablet 325 mg PO DAILYPRN PRN mild pain 10/12/24
guaifenesin 600 mg tablet, extended release 12 hr (Mucinex) 600 mg PO BIDPRN PRN congestion 10/12/24
pantoprazole 40 mg tablet,delayed release 40 mg PO QPM 10/12/24
Review of Systems
-
Constitutional: Reports No Symptoms
EENT: Reports No Symptoms
Respiratory: Reports No Symptoms
Cardiac: Reports No Symptoms
Abdomen/GI: Reports No Symptoms
: Reports No Symptoms
Musculoskeletal: Reports Other (right LE pain)
Skin: Reports No Symptoms
Neurological: Reports No Symptoms
Endocrine: Reports No Symptoms
Hematologic/Lymphatic: Reports No Symptoms
Psych: Reports No Symptoms
Physical Exam
Vital Signs
Vital Signs
Temp Pulse Resp BP Pulse Ox
97.4 F 88 18 141/63 99
10/12/24 17:23 10/12/24 17:23 10/12/24 17:23 10/12/24 17:23 10/12/24 17:23
Physical Exam
General: Well Developed, Well Nourished and No Apparent Distress
HEENT: NormoCephalic, Moist mucous membranes and Atraumatic
Respiratory: Clear
Cardiac: S1/S2 and Regular Rhythm; No Murmur or Rub
GI: Soft, Non Tender, Non Distended and Normal Bowel Sounds; No Organomegaly
Rectal: Deferred by Provider
Musculoskeletal: No Clubbing, No Cyanosis and No Edema
Skin: No Rash
Neuro: AO x 3 and Nonfocal/grossly intact
Psych: Calm
Laboratory Results
-
10/12/24 17:43
10/12/24 20:08
Laboratory Results
Total Bilirubin 0.9 mg/dl (0.2-1.3) 10/12/24 20:08
AST 57 U/L (14-36) H 10/12/24 20:08
ALT 68 U/L (0-35) H 10/12/24 20:08
Alkaline Phosphatase 80 U/L (38-126) 10/12/24 20:08
Data Reviewed
-
Ultrasound: Report Reviewed by me
Lab Data: Labs Reviewed by me
Impression/Plan
-
#right LE pain and weakness
-PT/OT consult
-gabapentin added
#acute kidney injury on CKD stage 3b/hyponatremia/metabolic acidosis secondary to dehydration
-na 127, cr 3.1, Co2 17
-obtain urine NA, osm, serum osm
-fluids continued
-BMP in am
# Transaminitis likely secondary to dehydration
-AST 57, ALT 68
-denied abdominal pain
-monitor LFT in am
#poor appetite
-nutrition consulted
#hxt of CHF
-patient not in acute exacerbation
-hold diuretics
-strict Iand O
-daily weight
#essential HTN
-hold Losartan due to ANGELLA
-metoprolol continued
#GERD
-PPI continued
#HLD
-statin continued
#DVT prophylaxis
-heparin sq
#CODE status
-DNR
[2024-10-12] MEDS: NSS 1000 IV (22:07)
[2024-10-12] MEDS: NEURONTIN 100 MG PO (22:46)
[2024-10-12 22:51] LABS: Osmolality Serum 295 mOsm/kg (275-300)
[2024-10-12 22:57] VITALS: BMI 22.8
[2024-10-12 23:55] VITALS: BMI 23.6
[2024-10-12 23:56] VITALS: BP 136/60
[2024-10-13] MEDS: NSS 1000 IV (01:08)
[2024-10-13 06:00] VITALS: BMI 23.8
[2024-10-13 07:13] VITALS: BP 101/65
[2024-10-13 08:13] VITALS: BP 101/65
[2024-10-13 08:31] LABS: ALT (SGPT) 59 U/L (0-35); AST (SGOT) 42 U/L (14-36); Albumin 3.4 g/dl (3.5-5.0); Alkaline Phosphatase 72 U/L (38-126); Blood Urea Nitrogen 81 mg/dl (7-17); Calcium 8.8 mg/dl (8.4-10.2); Carbon Dioxide 16 mmol/L (22-30); Chloride 92 mmol/L (98-107); Direct Bilirubin 0.4 mg/dl (0.0-0.4); Estimated Creatinine Clearance 13 ml/min; Glucose 150 mg/dl (70-99); Potassium 4.2 mmol/L (3.5-5.1); Sodium 129 mmol/L (135-145); Total Bilirubin 0.5 mg/dl (0.2-1.3); Total Protein 5.9 g/dl (6.3-8.2); eGFR 17.11
[2024-10-13 08:34] LABS: Osmolality Urine 368 mOsm/kg (300-900)
[2024-10-13 08:43] LABS: Urine Sodium 28 mmol/L (30-90)
[2024-10-13 09:24] VITALS: BP 127/59; PULSE 81; O2SAT 97
[2024-10-13] MEDS: TOPROL XL PO (09:30)
[2024-10-13] MEDS: NEURONTIN 100 MG PO ×3 (09:31→22:15)
[2024-10-13] MEDS: HEPARIN 5000 UNITS SC ×2 (09:31→20:05)
--- NOTE | 2024-10-13 09:42 | CM ---
CM following re: discharge planning.
Reviewed pt's chart, met with pt.
Pt is an 89 year old female, admitted with primary dx of Dehydration. Right LE pain and weakness.
Pt reports she has been living in an independent apartment at [facility] since 2018, has supportive daughter. Pt reports she ambulates with a walker and has been experienced difficulties with walking in the past week. Pt was not happy to
participate in the interview.
PT and OT will evaluate the pt to determine a level of care at discharge.
PCP: [facility]
D/C plan: Awaiting PT and OT evaluations and recommendations regarding next level of care.
CM will follow with discharge plan updates as hospitalization progresses
--- NOTE | 2024-10-13 10:37 | W.PN.HOSP.TC ---
Addendum entered and electronically signed by Medardo Dee DO 10/13/24 12:48:
High anion gap metabolic acidosis -present on admission. Anion gap 25 yesterday, 21 this morning.
Will change IV fluids to sodium bicarbonate.
Check UA.
Original Note:
Today's Communication/Plan
-
Await lower extremity arterial studies
PT/OT
IV fluids
Labs in the morning
Assessment / Plan
Assessment / Plan
Gen-AAOx3, NAD
HEENT-NC, AT, anicteric, clear oral mm
Neck-supple
CV-reg, no M, +S1/S2
Lungs-clear B/L
Abd-soft, NT, ND
Ext-no edema
Musculoskeletal-no cyanosis, clubbing
Skin-warm and dry
Neuro-grossly non-focal
Psych-calm, cooperative
ANGELLA on CKD 3B -likely due to volume depletion. Improving with IV fluids. Suspect due to anorexia at home.
Hypovolemic hyponatremia -improving with IV fluids.
Right lower extremity pain -venous Doppler ultrasound negative. Await arterial studies. If normal then likely neuropathic pain. Continue empiric gabapentin.
Elevated transaminases -unclear etiology. Hold statin. Check GGT.
Chronic heart failure preserved EF
Essential hypertension -stable.
Hyperlipidemia
GERD
DNR
PT/OT
Family updated at the bedside.
Anticipated Discharge: 24 - 48 hours
Subjective/Interval History
-
Date of Service: October 13, 2024
Patient seen and examined. Complaining of right lower extremity pain below the knee.
Objective Data
-
Labs:
Laboratory Results
10/13/24
07:39
Sodium 129 L
Potassium 4.2
Chloride 92 L
Carbon Dioxide 16 L
BUN 81 H
Creatinine 2.6 H
Glucose 150 H
Calcium 8.8
Total Bilirubin 0.5
AST 42 H
ALT 59 H
Alkaline Phosphatase 72
Vital Signs:
Vital Signs
Temp Pulse Resp BP Pulse Ox
97.5 F 95 13 101/65 93
10/13/24 07:13 10/13/24 07:13 10/13/24 07:13 10/13/24 09:30 10/13/24 07:13
I&O
10/12/24 10/13/24 10/14/24
06:59 06:59 06:59
Intake Total 880 / 880
Balance 880 / 880
Review of Systems
-
History Source: Patient
All other systems: Reviewed and negative
[2024-10-13 11:08] LABS: GGTP 54 U/L (12-43)
[2024-10-13] MEDS: NSS IV (12:31)
[2024-10-13] MEDS: SODIUM BICARBONATE 1150 MEQ IV (13:07)
[2024-10-13 15:16] VITALS: BP 121/56
[2024-10-13] MEDS: PROTONIX 40 MG PO (17:33)
[2024-10-13 23:50] VITALS: BP 104/67
[2024-10-14] MEDS: SODIUM BICARBONATE 1150 MEQ IV (00:40)
[2024-10-14 03:59] LABS: Urine Albumin Negative (Neg - Trace); Urine Bilirubin Negative (Negative); Urine Character Clear (Clear); Urine Color Yellow; Urine Glucose Negative (Negative); Urine Ketone Negative (Negative); Urine Leukocyte Negative (Negative); Urine Nitrite Negative (Negative); Urine Occult Blood Negative (Negative); Urine Specific Gravity 1.015 (<1.030); Urine Urobilinogen Negative (Neg - 1+)
[2024-10-14 06:00] VITALS: BMI 23.9
[2024-10-14 07:25] VITALS: BP 133/68
[2024-10-14 08:25] LABS: Blood Urea Nitrogen 88 mg/dl (7-17); Calcium 8.8 mg/dl (8.4-10.2); Carbon Dioxide 22 mmol/L (22-30); Chloride 91 mmol/L (98-107); Estimated Creatinine Clearance 18 ml/min; Glucose 147 mg/dl (70-99); Potassium 4.1 mmol/L (3.5-5.1); Sodium 130 mmol/L (135-145)
[2024-10-14] MEDS: HEPARIN 5000 UNITS SC ×3 (08:28→17:43)
[2024-10-14] MEDS: TOPROL XL 25 MG PO (08:28)
[2024-10-14] MEDS: NEURONTIN 100 MG PO ×3 (08:29→21:18)
--- NOTE | 2024-10-14 09:23 | W.PN.HOSP.TC ---
Today's Communication/Plan
-
SERENA. Gabapentin. PT OT
Assessment / Plan
Assessment / Plan
Gen-AAOx3, NAD
HEENT-NC, AT, anicteric, clear oral mm
Neck-supple
CV-reg, no M, +S1/S2
Lungs-clear B/L
Abd-soft, NT, ND
Ext-no edema
Musculoskeletal-no cyanosis, clubbing
Skin-warm and dry
Neuro-grossly non-focal
Psych-calm, cooperative
A/P:
ANGELLA on CKD 3B or possible progression to stage IV-acute component likely due to volume depletion. Improved with IV fluids, approaching baseline. Suspected due to anorexia at home. Encourage oral intake at this point and monitor renal function.
Consider starting oral bicarb. Family tells me she was independent living so she will need skilled upon discharge.
Hypovolemic hyponatremia -improving with IV fluids. Sodium up to 130 today.
Bilateral lower extremity pain R>L; Likely peripheral neuropathy -improving. Venous Doppler ultrasound negative. Discussed arterial studies with family. Will check B12 and folate in a.m. TSH and consider EMG as outpatient. Continue empiric
gabapentin.
Elevated transaminases -unclear etiology. Hold statin. Check GGT. repeat LFTs in a.m.
Chronic heart failure preserved EF
Essential hypertension -stable.
Hyperlipidemia
GERD
DNR
PT/OT
Family updated at the bedside and later on over the phone today on 10/14. Discussed they need to appoint spokesperson and they prefer Rolf at [phone].
Anticipated Discharge: 24 - 48 hours
Subjective/Interval History
-
Date of Service: October 14, 2024
Patient still having some pain in her legs but mostly when palpated or upon movement. Afebrile
Objective Data
-
Labs:
Laboratory Results
10/14/24
06:14
Sodium 130 L
Potassium 4.1
Chloride 91 L
Carbon Dioxide 22
BUN 88 H
Creatinine 1.8 H
Glucose 147 H
Calcium 8.8
Vital Signs:
Vital Signs
Temp Pulse Resp BP Pulse Ox
97.8 F 72 18 133/68 92
10/14/24 07:25 10/14/24 08:28 10/14/24 07:25 10/14/24 08:28 10/14/24 07:25
I&O
10/13/24 10/14/24 10/15/24
06:59 06:59 06:59
Intake Total 880 / 880 1880 / 1880
Output Total 360 / 360
Balance 880 / 880 1520 / 1520
--- NOTE | 2024-10-14 11:40 | CM ---
PT OT evals said VN VS SNF with supervision and min assist.
Spoke with Efra dorantes [phone] reviewed PT OT eval with son .He requested [facility] [place]
Referral placed in care port.
IMM reviewed IMM for review left in room for son,
PLAN Return to [place] with [facility] fax [phone]
[2024-10-14 15:07] VITALS: BP 120/49
[2024-10-14] MEDS: PROTONIX 40 MG PO (17:43)
[2024-10-14] MEDS: TYLENOL 1000 MG PO (21:18)
[2024-10-14 23:21] VITALS: BP 98/41
[2024-10-15] MEDS: HEPARIN 5000 UNITS SC ×2 (02:46→09:20)
[2024-10-15] MEDS: TYLENOL 1000 MG PO ×3 (05:45→21:45)
[2024-10-15 06:00] VITALS: BMI 24.1
[2024-10-15 07:36] VITALS: BP 121/47
[2024-10-15 08:07] LABS: Hemoglobin 11.5 g/dL (12.0-16.0); Mean Corp Hgb Conc. 37.1 g/dL (33.0-37.0); Mean Corpuscular Hgb 30.6 pg (27.0-31.0); Mean Corpuscular Volume 82.4 fL (81.0-99.0); Mean Platelet Volume 9.5 fL (7.4-10.4); Platelet Count 249 10^3/uL (130-400); Red Blood Cell Count 3.76 10^6/uL (4.20-5.40); Red Cell Dist. Width 13.9 % (11.5-14.5); White Blood Cell Count 5.7 10^3/uL (4.8-10.8)
[2024-10-15] MEDS: TOPROL XL 25 MG PO (08:13)
[2024-10-15] MEDS: NEURONTIN 100 MG PO ×3 (08:13→21:45)
[2024-10-15 08:43] LABS: TSH Reflex To Free T4 1.81 uIU/ml (0.47-4.68)
[2024-10-15 09:18] LABS: Folate 15.2 ng/ml (2.76-20); Vitamin B12 825 pg/ml (239-931)
[2024-10-15 09:20] VITALS: BP 120/51; BP 133/75; PULSE 65; O2SAT 95
--- NOTE | 2024-10-15 09:52 | W.PN.HOSP.TC ---
Today's Communication/Plan
-
Encourage oral intake. Discharge planning
Assessment / Plan
Assessment / Plan
Gen-AAOx3, NAD
HEENT-NC, AT, anicteric, clear oral mm
Neck-supple
CV-reg, no M, +S1/S2
Lungs-clear B/L
Abd-soft, NT, ND
Ext-no edema
Musculoskeletal-no cyanosis, clubbing
Skin-warm and dry
Neuro-grossly non-focal
Psych-calm, cooperative
A/P:
ANGELLA on CKD 3B or possible progression to stage IV-acute component likely due to volume depletion. Improved with IV fluids and now on oral intake, approaching baseline. Suspected due to anorexia at home. Encourage oral intake at this point and
monitor renal function. No need for oral bicarb. Renal function and acid-base level improving on oral intake. manager quantitative for discharge disposition.
Hypovolemic hyponatremia -improved with IV fluids and now on oral intake. Sodium up to 131 today.
Bilateral lower extremity pain R>L; Likely peripheral neuropathy -improving. Venous Doppler ultrasound negative. Discussed arterial studies with family. Normal levels of B12 and folate and TSH. Consider EMG as outpatient. Continue empiric
gabapentin.
Elevated transaminases -unclear etiology. Hold statin. Check GGT. repeated LFTs
Chronic heart failure preserved EF
Essential hypertension -stable.
Hyperlipidemia
GERD
DNR
PT/OT
Family updated at the bedside earlier this morning on 10/15. Discussed again today on 10/15 with Rolf and [id number] at [phone].
Anticipated Discharge: Within 24 hours
Subjective/Interval History
-
Date of Service: October 15, 2024
Patient pain fluctuates. She is eating a bit more. Afebrile
Objective Data
-
Labs:
Laboratory Results
10/15/24 10/15/24 10/15/24
06:16 08:52 09:49
WBC 5.7
Hgb 11.5 L
Hct 31.0 L
Plt Count 249 D
Sodium Cancelled Cancelled Pending
Potassium Cancelled Cancelled Pending
Chloride Cancelled Cancelled Pending
Carbon Dioxide Cancelled Cancelled Pending
BUN Cancelled Cancelled Pending
Creatinine Cancelled Cancelled Pending
Glucose Cancelled Cancelled Pending
Calcium Cancelled Cancelled Pending
Total Bilirubin Cancelled Cancelled Pending
AST Cancelled Cancelled Pending
ALT Cancelled Cancelled Pending
Alkaline Phosphatase Cancelled Cancelled Pending
Vital Signs:
Vital Signs
Temp Pulse Resp BP Pulse Ox
97.4 F 68 18 121/47 97
10/15/24 07:36 10/15/24 08:13 10/15/24 07:36 10/15/24 08:13 10/15/24 07:36
I&O
10/14/24 10/15/24 10/16/24
06:59 06:59 06:59
Intake Total 1880 / 1880 1080 / 1080
Output Total 360 / 360 300 / 300
Balance 1520 / 1520 780 / 780
[2024-10-15 11:02] LABS: ALT (SGPT) 50 U/L (0-35); AST (SGOT) 43 U/L (14-36); Albumin 3.7 g/dl (3.5-5.0); Alkaline Phosphatase 90 U/L (38-126); Blood Urea Nitrogen 88 mg/dl (7-17); Calcium 9.3 mg/dl (8.4-10.2); Carbon Dioxide 29 mmol/L (22-30); Chloride 89 mmol/L (98-107); Direct Bilirubin 0.4 mg/dl (0.0-0.4); Estimated Creatinine Clearance 21 ml/min; Glucose 149 mg/dl (70-99); Potassium 3.6 mmol/L (3.5-5.1); Sodium 131 mmol/L (135-145); Total Bilirubin 0.9 mg/dl (0.2-1.3); Total Protein 6.2 g/dl (6.3-8.2); eGFR 30.64
[2024-10-15 15:23] VITALS: BP 105/49
--- NOTE | 2024-10-15 16:39 | CM ---
PT OT evchristy said VN VS SNF with supervision and min assist.
Spoke with Parul gandara [phone] reviewed PT OT eval and family requested [facility] at [place].
aware pt is returning to [place] with VN
PLAN Return to [facility] with [facility] fax [phone]
[2024-10-15] MEDS: HEPARIN SC (17:07)
[2024-10-15] MEDS: PROTONIX 40 MG PO (17:07)
[2024-10-15 23:45] VITALS: BP 97/43
[2024-10-16] MEDS: HEPARIN 5000 UNITS SC ×2 (02:16→09:25)
[2024-10-16] MEDS: TYLENOL 1000 MG PO (05:00)
[2024-10-16 06:00] VITALS: BMI 24.3
[2024-10-16 07:35] VITALS: BP 116/58
[2024-10-16 07:48] LABS: Blood Urea Nitrogen 78 mg/dl (7-17); Calcium 9.3 mg/dl (8.4-10.2); Carbon Dioxide 34 mmol/L (22-30); Chloride 89 mmol/L (98-107); Estimated Creatinine Clearance 21 ml/min; Glucose 136 mg/dl (70-99); Potassium 3.5 mmol/L (3.5-5.1); Sodium 130 mmol/L (135-145); eGFR 30.64
[2024-10-16 08:45] VITALS: BP 108/53; PULSE 72
--- NOTE | 2024-10-16 08:49 | W.PN.HOSP.TC ---
Today's Communication/Plan
-
D/C plan
Assessment / Plan
Assessment / Plan
Gen-AAOx3, NAD
HEENT-NC, AT, anicteric, clear oral mm
Neck-supple
CV-reg, no M, +S1/S2
Lungs-clear B/L
Abd-soft, NT, ND
Ext-no edema
Musculoskeletal-no cyanosis, clubbing
Skin-warm and dry
Neuro-grossly non-focal
Psych-calm, cooperative
A/P:
ANGELLA on CKD 3B or possible progression to stage IV-acute component likely due to volume depletion. Improved with IV fluids and now on oral intake, approaching baseline. Suspected due to anorexia at home. Encourage oral intake at this point and
monitor renal function. No need for oral bicarb. Renal function and acid-base level improving on oral intake. manager switch for discharge disposition.
Hypovolemic hyponatremia -improved with IV fluids and now on oral intake. Sodium up to 130 today.
Bilateral lower extremity pain R>L; Likely peripheral neuropathy -improving. Venous Doppler ultrasound negative. Discussed arterial studies with family. Normal levels of B12 and folate and TSH. Consider EMG as outpatient. Continue empiric
gabapentin.
Elevated transaminases -unclear etiology. Hold statin. Check GGT. repeated LFTs
Chronic heart failure preserved EF
Essential hypertension -stable.
Hyperlipidemia
GERD
DNR
PT/OT
Family updated yesterday
Anticipated Discharge: Today
Subjective/Interval History
-
Date of Service: October 16, 2024
no new complaints
Objective Data
-
Labs:
Laboratory Results
10/16/24
05:54
Sodium 130 L
Potassium 3.5
Chloride 89 L
Carbon Dioxide 34 H
BUN 78 H
Creatinine 1.6 H
Glucose 136 H
Calcium 9.3
Vital Signs:
Vital Signs
Temp Pulse Resp BP Pulse Ox
97.6 F 71 16 116/58 94
10/16/24 07:35 10/16/24 07:35 10/16/24 07:35 10/16/24 07:35 10/16/24 07:35
I&O
10/15/24 10/16/24 10/17/24
06:59 06:59 06:59
Intake Total 1080 / 1080 1080 / 1080
Output Total 300 / 300
Balance 780 / 780 1080 / 1080
[2024-10-16] MEDS: NEURONTIN 100 MG PO (09:22)
[2024-10-16] MEDS: TOPROL XL 25 MG PO (09:22)
--- NOTE | 2024-10-16 09:29 | W.DCSUMMARY ---
Discharge Summary
Discharge Data
Date of Admission: 10/12/24
Date of Discharge: 10/16/24
-
Pending Results: No
Hospital Course
Patient 89 years old female came into the hospital with ANGELLA on CKD, hyponatremia, and leg pain. Patient was determined to have peripheral neuropathy and she was treated with Neurontin and responded. She also was given IV fluids and bicarb
infusions and some of her medications were held. Patient renal function went back to her baseline and acidosis resolved. Rest of her workup was unremarkable. Upon discharge continue to hold ARB and resume low-dose of diuretic and follow-up BMP
within the next 1 to 2 weeks for reevaluation. She participated with PT and OT. She will be discharged with the stable condition today.
Discharge duration: 35 minutes
Discharge Plan
-
Patient Disposition: Home with Home Care
Discharge Diagnosis/Procedures: Acute kidney injury. Hyponatremia. Peripheral neuropathy. Metabolic acidosis.
Condition: Fair
Diet: Low Cholesterol
Activity: As tolerated
Blood Work: Please PCP to order CBC, BMP within 1 week
Referrals:
Chaz Catalan, DO [Family Provider] - in less than 1 week
Prescriptions:
New
gabapentin 100 mg Capsule
100 mg PO TID 30 Days Qty: 90 0RF
furosemide [Lasix] 20 mg tablet
20 mg PO DAILY Qty: 30 0RF
Continued
simvastatin 20 MG tablet
20 mg PO HS
polyethylene glycol 3350 17 GRAMS powder in packet
17 grams PO DAILYPRN PRN (Reason: constipation)
metoprolol succinate 25 MG tablet extended release 24 hr
25 mg PO DAILY
cholecalciferol (vitamin D3) 1,000 UNITS tablet
1,000 units PO DAILY
acetaminophen 325 mg Tablet
325 mg PO DAILYPRN PRN (Reason: mild pain)
guaifenesin [Mucinex] 600 mg Tablet Extended Release 12hr
600 mg PO BIDPRN PRN (Reason: congestion)
pantoprazole 40 MG tablet,delayed release (DR/EC)
40 mg PO QPM
Discontinued
losartan 50 MG tablet
50 mg PO DAILY Qty: 30 3RF
furosemide 40 MG tablet
40 mg PO DAILY
Discharge Orders:
Discharge Patient (As Directed); Ordered 10/16/24
Ordered By: Rodney Weber
Discharge Date and Time
Discharge Date/Time: 10/16/24 13:25
Print Language: BENGALI
--- NOTE | 2024-10-16 10:16 | CM ---
Addendum entered by Meagan Chappell RN 10/16/24 13:37:
Correction :FAx [facility] [phone]
Original Note:
MD indicated pt ready for discharge today
PT OT evals said VN VS SNF with supervision and min assist.
Reviewed PT OT eval and family -requested [facility] at .
MD aware pt is returning to with VN.
Spoke [facility] nursing Vania reviewed PT ambulation with her. As per Vania no report needed for her return.
PLAN Return to fax dc summary [phone] with [facility] fax [phone]
[2024-10-16 12:59] VITALS: BP 106/60
--- NOTE | 2024-10-16 14:11 | PTCARENOTE ---
Received phone call from patient's daughter in law-patient's preferred pharmacy is on [facility] in [place]. Updated in EMR
== END 2024-10-16 13:25 | disposition home health service (06) | DRG 641 ==
LOC: 4 EAST ACU 23:07
PROVIDERS: Emergency Medicine; Hospitalist; Registered Nurse; ADMITTING PHYSICIAN Hospitalist; ATTENDING PHYSICIAN Hospitalist; EMERGENCY PHYSICIAN Emergency Medicine; FAMILY PHYSICIAN Family Medicine
DX: E87.1 Hypo-osmolality and hyponatremia (principal); N17.9 Acute kidney failure, unspecified; I13.0 Hypertensive heart and chronic kidney disease with heart failure and stage 1 through stage 4 chronic kidney disease, or unspecified chronic kidney disease; I50.32 Chronic diastolic (congestive) heart failure; E87.20 Acidosis, unspecified; G62.9 Polyneuropathy, unspecified; K59.00 Constipation, unspecified; N18.32 Chronic kidney disease, stage 3b; K21.9 Gastro-esophageal reflux disease without esophagitis; E86.0 Dehydration; E78.00 Pure hypercholesterolemia, unspecified; I49.5 Sick sinus syndrome; K57.30 Diverticulosis of large intestine without perforation or abscess without bleeding; M85.80 Other specified disorders of bone density and structure, unspecified site; I25.2 Old myocardial infarction; I35.0 Nonrheumatic aortic (valve) stenosis; M06.9 Rheumatoid arthritis, unspecified; I25.10 Atherosclerotic heart disease of native coronary artery without angina pectoris; G43.909 Migraine, unspecified, not intractable, without status migrainosus; Z96.652 Presence of left artificial knee joint; Z98.41 Cataract extraction status, right eye; Z98.42 Cataract extraction status, left eye; Z66 Do not resuscitate; E86.1 Hypovolemia; R63.0 Anorexia; Z95.0 Presence of cardiac pacemaker; I44.30 Unspecified atrioventricular block
CPT/HCPCS: 80048; 80053; 81003; 82248; 82607; 82746; 82977; 83930; 83935; 84300; 84443; 85025; 85027; 93922; 93925; 93970; 96361; 96374; 97116; 97162; 97166; 97530; 99284